=== PATIENT | female | born 2005 | race Caucasian/White ===

== ENCOUNTER 2023-10-02 16:45 | Emergency (ER) | payer SELFPAY ==
--- NOTE | 2023-10-02 17:57 | PC.NURSE ---
pt left without notifying rn lpn lvn
== END 2023-10-02 17:57 | disposition left against medical advice (07) ==
PROVIDERS: Emergency Provider Emergency Medicine
DX: R10.9 Unspecified abdominal pain (principal); Z53.21 Procedure and treatment not carried out due to patient leaving prior to being seen by health care provider